=== PATIENT | female | born 1970 | race Caucasian/White ===

== ENCOUNTER → 2019-08-25 | Outpatient (CLI) | payer OTHER ==
--- NOTE | 2019-08-25 18:31 | EEG ---
DATE OF SERVICE: 08/25/2019 EEG NUMBER: . OBJECTIVE: The patient is a 48-year-old female with episodes of presyncope. DESCRIPTION: This is a digital study. Electrodes are placed according to the international 10-20 system. Bipolar and referential montages are available. INTERPRETATION: The waking background consists of 9-10 Hz, 50-100 microvolt activity symmetrically distributed over parietooccipital regions and reactive to eye opening. Hyperventilation and intermittent photic stimulation are noncontributory. Stage 1 sleep is achieved with normal electroencephalogram patterns. IMPRESSION: This electroencephalogram with the patient awake and asleep is within normal limits. There is no focal, paroxysmal, or epileptiform activity. Thank you for letting us help with the patient's care. SCOTT BRITT MD DR: [email or web address]/khloe JOB#: [id number] / [id number]
== END | disposition home or self-care (01) ==
LOC: RT 08:51
PROVIDERS: ATTEND Psychiatry & Neurology Neurology with Special Qualifications in Child Neurology
DX: F41.0 Panic disorder [episodic paroxysmal anxiety] (principal); G43.009 Migraine without aura, not intractable, without status migrainosus; R55 Syncope and collapse; H53.483 Generalized contraction of visual field, bilateral
CPT/HCPCS: 95816